=== PATIENT | female | born 1980 | race African-American/Black ===

== ENCOUNTER 2021-06-18 22:27 | Emergency (ER) | payer OTHER ==
[2021-06-18 22:42] VITALS: BP 130/73; PULSE 63; TEMP 98.3; BMI 38.0
== END 2021-06-19 00:46 | disposition home or self-care (01) ==
LOC: JER 22:27
PROC: 0HQDXZZ Repair Right Lower Arm Skin, External Approach (ICD-10-PCS; principal; 2021-06-18)
DX: S51.811A Laceration without foreign body of right forearm, initial encounter (principal); W26.0XXA Contact with knife, initial encounter
CPT/HCPCS: 99282-25